=== PATIENT | male | born 1955 | race Asian ===

== ENCOUNTER 2019-01-19 09:09 | Emergency (ER) | payer OTHER ==
[~2019-01-19] VITALS: Ht 170.2 cm; Wt 71.0 kg
[2019-01-19] MEDS ORDERED: BUSP-29 PO (09:31)
[2019-01-19] MEDS ORDERED: BUPR100T13 PO (09:31)
[2019-01-19] MEDS ORDERED: SERT100T PO (09:31)
[2019-01-19] MEDS ORDERED: QUET400T PO (09:31)
[2019-01-19] MEDS ORDERED: KETOROLAC 30MG/ML VIAL IM ONE (10:15)
[2019-01-19 10:22] VITALS: BP 148/86
== END 2019-01-19 10:52 | disposition home or self-care (01) ==
LOC: ER 09:09
DX: N64.4 Mastodynia (principal); F41.9 Anxiety disorder, unspecified; F31.9 Bipolar disorder, unspecified; F17.200 Nicotine dependence, unspecified, uncomplicated; Z79.899 Other long term (current) drug therapy
CPT/HCPCS: 96372; 99283; J1885

== ENCOUNTER 2019-01-22 09:12 | Emergency (ER) | payer OTHER ==
[~2019-01-22] VITALS: Ht 170.2 cm; Wt 70.0 kg
[~2019-01-22 09:12] MED LIST: BUPR100T13 PO; BUSP-29 PO; QUET400T PO; SERT100T PO
[2019-01-22 09:30] VITALS: BP 131/83
[2019-01-22] MEDS ORDERED: TRAMADOL 50MG TABLET PO ONE (10:00)
== END 2019-01-22 11:30 | disposition home or self-care (01) ==
LOC: ER 09:12
DX: R07.89 Other chest pain (principal); R03.0 Elevated blood-pressure reading, without diagnosis of hypertension
CPT/HCPCS: 93005; 99283